=== PATIENT | male | born 1935 | race Caucasian/White ===

== ENCOUNTER 2019-06-15 12:42 | Emergency (ER) | payer MEDICARE ==
--- NOTE | 2019-06-15 13:40 | RAD ---
EXAM: CHEST 1 VIEW History: Edema COMPARISON: None available. TECHNIQUE: Single portable radiograph of the chest FINDINGS: Low lung volumes and technique accentuates heart size and pulmonary vascularity. Mild elevation of the right hemidiaphragm. Minimal bibasilar lung atelectasis. Age indeterminate right rib fractures probably old. IMPRESSION: 1. Right rib fractures, probably old. Minimal bibasilar lung atelectasis. Electronically signed by: Srinivasan Elizalde MD (06/15/2019 1:38 PM) [place] [id number]
[2019-06-15 13:43] LABS: BASO # 0.1 x10^3/uL (0.0-0.2); BASO % 1 % (0-3); EOS # 0.1 x10^3/uL (0.0-0.7); EOS % 2 % (0-3); HEMATOCRIT 43.6 % (39.0-53.0); HEMOGLOBIN 14.5 g/dL (13.0-17.5); LYMPH # 1.1 x10^3/uL (1.0-4.8); LYMPH % 17 % (24-48); MEAN CORPUSCULAR HEMOGLOBIN 29 pg (25-35); MEAN CORPUSCULAR HGB CONC 33 g/dL (31-37); MEAN CORPUSCULAR VOLUME 88 fL (79-100); MONO # 0.5 x10^3/uL (0.0-1.1); MONO % 7 % (0-9); NEUT # 4.9 x10^3uL (1.8-7.7); NEUT % 73 % (31-73); PLATELET COUNT 238 x10^3/uL (140-400); RED BLOOD COUNT 4.98 x10^6/uL (4.30-5.70); RED CELL DISTRIBUTION WIDTH 14.1 % (11.5-14.5); WHITE BLOOD COUNT 6.7 x10^3/uL (4.0-11.0)
[2019-06-15 13:51] LABS: BACTERIA,URINE 0 /HPF (0-FEW); BILIRUBIN,URINE NEG (NEG); CLARITY,URINE CLEAR; COLOR,URINE YELLOW; GLUCOSE,URINE NEG (NEG); NITRITE,URINE NEG (NEG); UROBILINOGEN,URINE 0.2 mg/dL (0.2 mg/dL)
[2019-06-15 13:52] LABS: SQUAMOUS EPITHELIAL CELL,UR OCC /LPF
[2019-06-15 14:04] LABS: ALBUMIN 3.2 g/dL (3.4-5.0); CALCIUM 8.8 mg/dL (8.5-10.1); CREATININE 1.4 mg/dL (0.7-1.3); GFR 48.3; TOTAL BILIRUBIN 0.8 mg/dL (0.2-1.0); TOTAL PROTEIN 6.3 g/dL (6.4-8.2)
--- NOTE | 2019-06-15 14:11 | PHYS DOC ---
Adult General Chief Complaint Chief Complaint: LOWER EXTREMITY SWELLING HPI HPI 84-year-old male presents with bilateral lower extremity swelling. He tells me that this is been building up for about the last 1 month. Patient has no shortness of breath, cough, chest pain, or diaphoresis. He walks one to 2 miles every day. He has been able to do this without trouble. His daughter was visiting him today noticed how swollen his legs were and she wanted to have him evaluated. Patient does not wear JORI hose. He has no history of CHF or other heart trouble. He is on a statin and pressure medicine. He denies fever or chills. Review of Systems Review of Systems Constitutional: Denies fever or chills [] Eyes: Denies change in visual acuity, redness, or eye pain [] HENT: Denies nasal congestion or sore throat [] Respiratory: Denies cough or shortness of breath [] Cardiovascular: No additional information not addressed in HPI [] GI: Denies abdominal pain, nausea, vomiting, bloody stools or diarrhea [] : Denies dysuria or hematuria [] Musculoskeletal: Lower extremity edema bilaterally[] Integument: Denies rash or skin lesions [] Neurologic: Denies headache, focal weakness or sensory changes [] Endocrine: Denies polyuria or polydipsia [] All other systems were reviewed and found to be within normal limits, except as documented in this note. Physical Exam Physical Exam Constitutional: Well developed, well nourished, no acute distress, non-toxic appearance. [] HENT: Normocephalic, atraumatic, bilateral external ears normal, oropharynx moist, no oral exudates, nose normal. [] Eyes: PERRLA, EOMI, conjunctiva normal, no discharge. [] Neck: Normal range of motion, no tenderness, supple, no stridor. [] Cardiovascular:Heart rate regular rhythm, no murmur [] Lungs & Thorax: Bilateral breath sounds clear to auscultation [] Abdomen: Bowel sounds normal, soft, no tenderness, no masses, no pulsatile masses. [] Skin: Warm, dry, no erythema, no rash. [] Back: No tenderness, no CVA tenderness. [] Extremities: No tenderness, no cyanosis, no clubbing, ROM intact, 4+ pitting edema bilaterally to the thighs. [] Neurologic: Alert and oriented X 3, normal motor function, normal sensory funct ion, no focal deficits noted. [] Psychologic: Affect normal, judgement normal, mood normal. [] Current Patient Data Lab Results Laboratory Tests Test 06/15/19 13:15 06/15/19 13:30 Urine Collection Type Void Urine Color Yellow Urine Clarity Clear Urine pH 6.0 Urine Specific [place] 1.020 Urine Protein Neg (NEG-TRACE) Urine Glucose (UA) Neg mg/dL (NEG) Urine Ketones (Stick) Neg mg/dL (NEG) Urine Blood Trace (NEG) Urine Nitrite Neg (NEG) Urine Bilirubin Neg (NEG) Urine Urobilinogen Dipstick 0.2 mg/dL (0.2 mg/dL) Urine Leukocyte Esterase Neg (NEG) Urine RBC 3-5 /HPF (0-2) Urine WBC 1-4 /HPF (0-4) Urine Squamous Epithelial Cells Occ /LPF Urine Bacteria 0 /HPF (0-FEW) Urine Mucus Slight /LPF White Blood Count 6.7 x10^3/uL (4.0-11.0) Red Blood Count 4.98 x10^6/uL (4.30-5.70) Hemoglobin 14.5 g/dL (13.0-17.5) Hematocrit 43.6 % (39.0-53.0) Mean Corpuscular Volume 88 fL (79-100) Mean Corpuscular Hemoglobin 29 pg (25-35) Mean Corpuscular Hemoglobin Concent 33 g/dL (31-37) Red Cell Distribution Width 14.1 % (11.5-14.5) Platelet Count 238 x10^3/uL (140-400) Neutrophils (%) (Auto) 73 % (31-73) Lymphocytes (%) (Auto) 17 % (24-48) L Monocytes (%) (Auto) 7 % (0-9) Eosinophils (%) (Auto) 2 % (0-3) Basophils (%) (Auto) 1 % (0-3) Neutrophils # (Auto) 4.9 x10^3uL (1.8-7.7) Lymphocytes # (Auto) 1.1 x10^3/uL (1.0-4.8) Monocytes # (Auto) 0.5 x10^3/uL (0.0-1.1) Eosinophils # (Auto) 0.1 x10^3/uL (0.0-0.7) Basophils # (Auto) 0.1 x10^3/uL (0.0-0.2) EKG EKG Sinus rhythm, prolonged UT, leftward axis, downsloping T waves in leads [address] elevations or depressions. Deep S waves in leads 2, 3, and aVF.[] Radiology/Procedures Radiology/Procedures [] Impressions: EXAM: CHEST 1 VIEW History: Edema COMPARISON: None available. TECHNIQUE: Single portable radiograph of the chest FINDINGS: Low lung volumes and technique accentuates heart size and pulmonary vascularity. Mild elevation of the right hemidiaphragm. Minimal bibasilar lung atelectasis. Age indeterminate right rib fractures probably old. IMPRESSION: 1. Right rib fractures, probably old. Minimal bibasilar lung atelectasis. Electronically signed by: Srinivasan Elizalde MD (06/15/2019 1:38 PM) [place] [id number] DICTATED AND SIGNED BY: SRINIVASAN ELIZALDE MD DATE: 06/15/19 0002 CC: BASHIR HAYES DO; THERON HAGEN MD ~ Course & Med Decision Making Course & Med Decision Making Pertinent Labs and Imaging studies reviewed. (See chart for details) Patient's x-ray does show some atelectasis. His labs are unremarkable. His proBNP is negative. I will place the patient on 20 mg of Lasix daily and advised that he follow-up with his primary care physician. He will also be advised to take a potassium supplement. He is stable for discharge at this time. [] Dragon Disclaimer Dragon Disclaimer This electronic medical record was generated, in whole or in part, using a voice recognition dictation system. Departure Departure: Impression: Primary Impression: Bilateral lower extremity edema Disposition: 01 HOME, SELF-CARE Condition: STABLE Referrals: THERON HAGEN MD (PCP) Patient Instructions: Peripheral Edema Additional Instructions: Please take a potassium supplement as long as you're on Lasix. Follow-up with your primary care physician as soon as possible to see if they want to continue this medicine. Scripts Furosemide (LASIX) 20 Mg Tablet 1 TAB PO DAILY for lower extremity edema for 10 Days, #10 TAB Prov: BASHIR HAYES DO 06/15/19 BASHIR HAYES DO Jun 15, 2019 14:11
[2019-06-15] MEDS ORDERED: FURO-69 PO (14:40)
--- NOTE | 2019-06-15 14:47 | EKG ---
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
== END 2019-06-15 14:50 | disposition home or self-care (01) ==
LOC: ER 12:42
DX: R60.0 Localized edema (principal)
CPT/HCPCS: 36415; 71045; 80053; 81001; 83880; 84484; 85025; 93005; 99285

== ENCOUNTER 2021-10-07 10:13 | Emergency (ER) | payer MEDICARE ==
[~2021-10-07] VITALS: Ht 180.3 cm; Wt 121.0 kg
[~2021-10-07 10:13] MED LIST: FURO-69 PO
[2021-10-07 10:15] VITALS: BP 120/55
--- NOTE | 2021-10-07 10:43 | PHYS DOC ---
General Adult HPI: HPI: Patient is an 86-year-old male who presents to the emergency department for left foot swelling that started yesterday. Patient denies any pain, injury, wounds, fevers, shortness of breath, chest pain. 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 He reports that his Coumadin was recently adjusted. Patient denies any recent surgeries or immobilization. (FRANSISCA LEON APRN) Review of Systems: Review of Systems: 14 body systems of the review of systems have been reviewed. See HPI for pertinent positive and negative responses, otherwise all other systems are negative, nonpertinent or noncontributory (FRANSISCA LEON APRN) Physical Exam: PE: Constitutional: Well developed, well nourished, no acute distress, non-toxic appearance. [] HENT: Normocephalic, atraumatic, bilateral external ears normal, oropharynx moist, no oral exudates, nose normal. [] Eyes: PERRL, EOMI, conjunctiva normal, no discharge. [] Neck: Normal range of motion, no stridor Cardiovascular:Heart rate regular rhythm, no murmur [] Lungs & Thorax: Bilateral breath sounds clear to auscultation [] Abdomen: Bowel sounds normal, soft, no tenderness, obese, no masses, no pulsatile masses. [] Skin: Warm, dry, no erythema, no rash. [] Back: Motion Extremities: No tenderness, no cyanosis, no clubbing, ROM intact, trace edema noted to right foot. Left foot: 1+ pitting edema noted to left foot, no erythema, no warmth noted, no wounds, range of motion intact, neuro intact. No calf or leg swelling noted. Neurologic: Alert and oriented X 3, normal motor function, normal sensory function, no focal deficits noted. [] Psychologic: Affect normal, judgement normal, mood normal. [] (FRANSISCA LEON RES HABILITATION ASSISTANT) Current Patient Data: Labs: Laboratory Tests Test 10/07/21 10:45 White Blood Count 10.0 x10^3/uL Red Blood Count 4.36 x10^6/uL Hemoglobin 12.5 g/dL Hematocrit 37.3 % Mean Corpuscular Volume 86 fL Mean Corpuscular Hemoglobin 29 pg Mean Corpuscular Hemoglobin Concent 33 g/dL Red Cell Distribution Width 14.6 % Platelet Count 254 x10^3/uL Neutrophils (%) (Auto) 78 % Lymphocytes (%) (Auto) 9 % Monocytes (%) (Auto) 12 % Eosinophils (%) (Auto) 1 % Basophils (%) (Auto) 1 % Neutrophils # (Auto) 7.8 x10^3uL Lymphocytes # (Auto) 0.9 x10^3/uL Monocytes # (Auto) 1.2 x10^3/uL Eosinophils # (Auto) 0.1 x10^3/uL Basophils # (Auto) 0.1 x10^3/uL Sodium Level 142 mmol/L Potassium Level 4.5 mmol/L Chloride Level 105 mmol/L Carbon Dioxide Level 30 mmol/L Anion Gap 7 Blood Urea Nitrogen 29 mg/dL Creatinine 1.8 mg/dL Estimated GFR (Cockcroft-Gault) 36.0 BUN/Creatinine Ratio 16 Glucose Level 107 mg/dL Calcium Level 8.2 mg/dL Total Bilirubin 0.5 mg/dL Aspartate Amino Transf (AST/SGOT) 21 U/L Alanine Aminotransferase (ALT/SGPT) 16 U/L Alkaline Phosphatase 83 U/L Troponin I High Sensitivity 10 ng/L BE-Dai-E-Type Natriuretic Peptide 322 pg/mL Total Protein 6.1 g/dL Albumin 3.0 g/dL Albumin/Globulin Ratio 1.0 (FRANSISCA LEON APRN) EKG: EKG: [] (FRANSISCA LEON APRN) Radiology/Procedures: Radiology/Procedures: []PROCEDURE: FOOT LEFT 3V EXAM: Left foot, 3 views. HISTORY: Swelling. COMPARISON: None. FINDINGS: 3 views of the left foot are obtained. There is no acute fracture, dislocation or subluxation. There is no convincing osseous erosion or lytic or sclerotic osseous lesion. There is dorsal forefoot soft tissue edema. There is a benign osseous excrescence along the anterior talus. There is a tiny plantar spur. There are vascular calcifications. IMPRESSION: 1. Dorsal forefoot soft tissue swelling. 2. No acute osseous finding. Electronically signed by: Maggie Barros MD (10/07/2021 11:15 AM) [id number] DICTATED AND SIGNED BY: MAGGIE BARROS MD DATE: 10/07/21 1114 CC: FRANSISCA LEON APRN; THERON HAGEN MD ~MTH0 0 PROCEDURE: VENOUS LOWER EXTREMITY LEFT Exam Date: 10/07/2021 10:44 AM US DPLX VENOUS EXTREMITY LOWER LT Indication: Reason: lle swelling / Spl. Instructions: / History: . INDICATION: Lower extremity pain/swelling TECHNIQUE: Grayscale sonogram, color Doppler, and spectral Doppler waveform analysis of the lower extremity venous system was performed on the left. FINDINGS: The left common femoral, superficial femoral, central greater saphenous, popliteal, posterior tibial and peroneal veins are compressible and demonstrate normal color Doppler flow and normal spontaneous phasic waveforms or normal response to augmentation. Left lower extremity subcutaneous edema is noted. IMPRESSION: No evidence of deep venous thrombosis in the left lower extremity. Left lower extremity subcutaneous edema is noted. Electronically signed by: Amy De La Torre MD (10/07/2021 11:07 AM) [id number] DICTATED AND SIGNED BY: AMY DE LA TORRE MD DATE: 10/07/21 1106 CC: FRANSISCA LEON APRN; THERON HAGEN MD ~MTH0 0 (FRANSISCA LEON APRN) Heart Score: C/O Chest Pain: No Risk Factors: Risk Factors: DM, Current or recent (<one month) smoker, HTN, HLP, family history of CAD, obesity. Risk Scores: Score 0 - 3: 2.5% MACE over next 6 weeks - Discharge Home Score 4 - 6: 20.3% MACE over next 6 weeks - Admit for Clinical Observation Score 7 - 10: 72.7% MACE over next 6 weeks - Early Invasive Strategies (FRANSISCA LEON APRN) Course & Med Decision Making: Course & Med Decision Making Pertinent Labs and Imaging studies reviewed. (See chart for details) [] Patient presents emergency department today for swelling in his left foot that started yesterday. Patient denies any pain, shortness of breath, chest p ain, injury, fevers or wounds. Patient has a history of a DVT in 2003 and is on Coumadin and recently had those dosages changed. Patient's well score is 2 points giving him moderate risk for DVT. Work-up in the ER consisted of blood work and ultrasound of left lower extremity. CBC was unremarkable. Patient had elevated BUN and creatinine which is consistent with his previous lab findings. Remainder of patient's labs was unremarkable. The x-ray did not show any acute findings. Ultrasound did not show any DVT, subcutaneous edema was noted. Patient will be treated for cellulitis with an antibiotic. Patient advised to elevate his extremity to help with his edema. Patient's vital signs are stable he is in no acute distress. Discussed case with supervising physician. I discussed with patient all findings and diagnostic testing as well as the need to follow-up with PCP for further evaluation and treatment or return to the ER if any new or worsening symptoms. Strict return precautions were also discussed at length. Patient voiced understanding and agreement with the plan. Patient is hemodynamically stable at the time of disposition. (FRANSISCA LEON APRN) Dragon Disclaimer: Dragon Disclaimer: This electronic medical record was generated, in whole or in part, using a voice recognition dictation system. (FRANSISCA LEON APRN) Attending Co-Sign The patient was seen and interviewed as well as examined at the bedside. The chart was reviewed. The case was discussed. Agree with the plan of care. (BASHIR HAYES DO) Departure Departure: Impression: Primary Impression: Cellulitis Qualified Codes: L03.116 - Cellulitis of left lower limb Additional Impression: Lower extremity edema Disposition: HOME / SELF CARE / HOMELESS Condition: GOOD Referrals: THERON HAGEN MD (PCP) Patient Instructions: Cellulitis, [id number], Edema Additional Instructions: You were seen in the emergency department today for swelling to your left foot. Your blood work was mostly unremarkable, you had an elevated kidney level which is consistent with your previous lab findings. Your x-ray did not show any acute findings and your ultrasound did not show any blood clots in your leg. We are treating you for cellulitis which is a skin infection and can cause skin swelling, please start and finish the antibiotic completely. Please use elevation to help with your lower extremity edema. Please make sure that you are taking all of your medications as prescribed. I would advise you to follow- up with your primary care provider tomorrow regarding your ER visit. Please return to the emergency department if you develop worsening of your swelling, pain, shortness of breath, chest pain, coughing up blood, high fevers refractory to treatment, inability to bear weight or ambulate or any new or worsening concerns. Scripts Cephalexin (KEFLEX) 500 Mg Capsule 1 CAP PO QID for infection for 7 Days, #28 CAP 0 Refills Prov: FRANSISCA LEON APRN 10/07/21 FRANSISCA LEON APRN Oct 07, 2021 10:43 BASHIR HAYES DO Oct 08, 2021 11:24
[2021-10-07 11:09] LABS: BASO # 0.1 x10^3/uL (0.0-0.2); BASO % 1 % (0-3); EOS # 0.1 x10^3/uL (0.0-0.7); EOS % 1 % (0-3); HEMATOCRIT 37.3 % (39.0-53.0); HEMOGLOBIN 12.5 g/dL (13.0-17.5); LYMPH # 0.9 x10^3/uL (1.0-4.8); LYMPH % 9 % (24-48); MEAN CORPUSCULAR HEMOGLOBIN 29 pg (25-35); MEAN CORPUSCULAR HGB CONC 33 g/dL (31-37); MEAN CORPUSCULAR VOLUME 86 fL (79-100); MONO # 1.2 x10^3/uL (0.0-1.1); MONO % 12 % (0-9); NEUT # 7.8 x10^3uL (1.8-7.7); NEUT % 78 % (31-73); PLATELET COUNT 254 x10^3/uL (140-400); RED BLOOD COUNT 4.36 x10^6/uL (4.30-5.70); RED CELL DISTRIBUTION WIDTH 14.6 % (11.5-14.5)
--- NOTE | 2021-10-07 11:09 | RAD ---
Exam Date: 10/07/2021 10:44 AM US DPLX VENOUS EXTREMITY LOWER LT Indication: Reason: lle swelling / Spl. Instructions: / History: . INDICATION: Lower extremity pain/swelling TECHNIQUE: Grayscale sonogram, color Doppler, and spectral Doppler waveform analysis of the lower ex tremity venous system was performed on the left. FINDINGS: The left common femoral, superficial femoral, central greater saphenous, popliteal, posterior tibial and peroneal veins are compressible and demonstrate normal color Doppler flow and normal spontaneous phasic waveforms or normal response to augmentation. Left lower extremity subcutaneous edema is noted. IMPRESSION: No evidence of deep venous thrombosis in the left lower extremity. Left lower extremity subcutaneous edema is noted. Electronically signed by: Shar De La Torre MD (10/07/2021 11:07 AM) [id number]
--- NOTE | 2021-10-07 11:18 | RAD ---
EXAM: Left foot, 3 views. HISTORY: Swelling. COMPARISON: None. FINDINGS: 3 views of the left foot are obtained. There is no acute fracture, dislocation or subluxati on. There is no convincing osseous erosion or lytic or sclerotic osseous lesion. There is dorsal fore foot soft tissue edema. There is a benign osseous excrescence along the anterior talus. There is a ti ny plantar spur. There are vascular calcifications. IMPRESSION: 1. Dorsal forefoot soft tissue swelling. 2. No acute osseous finding. Electronically signed by: Maggie Toscano MD (10/07/2021 11:15 AM) [id number]
[2021-10-07 11:21] LABS: CALCIUM 8.2 mg/dL (8.5-10.1); CREATININE 1.8 mg/dL (0.7-1.3); POTASSIUM 4.5 mmol/L (3.5-5.1)
[2021-10-07 11:34] LABS: TOTAL BILIRUBIN 0.5 mg/dL (0.2-1.0); TOTAL PROTEIN 6.1 g/dL (6.4-8.2)
[2021-10-07] MEDS ORDERED: CEPH500C PO (11:58)
== END 2021-10-07 12:20 | disposition home or self-care (01) ==
LOC: ER 10:13
DX: L03.116 Cellulitis of left lower limb (principal); R60.0 Localized edema
CPT/HCPCS: 36415; 73630; 80053; 83880; 84484; 85025; 93971; 99285-25

== ENCOUNTER 2021-12-13 10:31 | Emergency (ER) | payer MEDICARE ==
[~2021-12-13] VITALS: Ht 180.3 cm; Wt 121.0 kg
[~2021-12-13 10:31] MED LIST changes: +CEPH500C PO
--- NOTE | 2021-12-13 11:23 | PHYS DOC ---
Past History Additional Past Medical Histor: Chronic anticoagulant Past Surgical History: Other Additional Past Surgical Histo: IVC filter Alcohol Use: None General Adult EDM: Chief Complaint: GENERALIZED BODY ACHES HPI: HPI: Patient is a 86-year-old male who presents with body aches. Patient states for the last 3 days when he wakes up in the morning he has body aches until about 11 AM. Denies pain. No fevers. No recent illness. No dizziness, chest pain, shortness of breath. Patient states "I just feel achy, and then it goes away in a couple hours". Denies taking anything for discomfort. Patient has been fully vaccinated for COVID-19. Patient has history of hypertension, hyperlipidemia. Review of Systems: Review of Systems: ROS At least 10 ROS systems have been reviewed and are negative except as documented in the HPI. General: Negative except as outlined in HPI above. Skin: Negative except as outlined in HPI above. HEENT: Negative except as outlined in HPI above. Neck: Negative except as outlined in HPI above. Respiratory: Negative except as outlined in HPI above.. Cardiovascular: Negative except as outlined in HPI above. Abdomen: Negative except as outlined in HPI above. : Negative except as outlined in HPI above. Back/MSK: Negative except as outlined in HPI above. Neuro: Negative except as outlined in HPI above. Psych: Negative except as outlined in HPI above. Allergies: Allergies: Allergies Coded Allergies Type Severity Reaction Last Updated Verified No Known Drug Allergies 10/07/21 No Physical Exam: PE: Constitutional: Well developed, well nourished, no acute distress, non-toxic appearance. [] HENT: Normocephalic, atraumatic, bilateral external ears normal, oropharynx moist, no oral exudates, nose normal. [] Eyes: PERRLA, EOMI, conjunctiva normal, no discharge. [] Neck: Normal range of motion, no tenderness, supple, no stridor. [] Cardiovascular:Heart rate regular rhythm, no murmur [] Lungs & Thorax: Bilateral breath sounds clear to auscultation [] Abdomen: Bowel sounds normal, soft, no tenderness, no masses, no pulsatile masses. [] Skin: Warm, dry, no erythema, no rash. [] Back: No tenderness, no CVA tenderness. [] Extremities: No tenderness, no cyanosis, no clubbing, ROM intact, no edema. [] Neurologic: Alert and oriented X 3, normal motor function, normal sensory function, no focal deficits noted. [] Psychologic: Affect normal, judgement normal, mood normal. [] Current Patient Data: Vital Signs: Vital Signs Date Time Temp Pulse Resp B/P (MAP) Pulse Ox O2 Delivery O2 Flow Rate FiO2 12/13/21 10:53 98.2 88 18 125/65 (85) 99 Room Air EKG: EKG: HR 67BPM[] Radiology/Procedures: Radiology/Procedures: []AP chest. HISTORY: Body aches AP view was taken of the chest. There are old right rib fractures. There is no pneumothorax or pleural effusion. Heart is normal in size. The aorta is tortuous. There is thoracolumbar scoliosis. Patient's not taken a deep inspiration. No acute infiltrates are noted. IMPRESSION: 1. No acute infiltrates. Electronically signed by: Kayden Dietrich MD (12/13/2021 11:51 AM) [id number] Heart Score: C/O Chest Pain: No Risk Factors: Risk Factors: DM, Current or recent (<one month) smoker, HTN, HLP, family history of CAD, obesity. Risk Scores: Score 0 - 3: 2.5% MACE over next 6 weeks - Discharge Home Score 4 - 6: 20.3% MACE over next 6 weeks - Admit for Clinical Observation Score 7 - 10: 72.7% MACE over next 6 weeks - Early Invasive Strategies Course & Med Decision Making: Course & Med Decision Making Pertinent Labs and Imaging studies reviewed. (See chart for details) [] 86-year-old male presents with body aches for the last 3 days. Patient states that they only lasted for a couple of hours and then go away. Work-up in ER consisted of EKG, labs, UA, chest x-ray. Dragon Disclaimer: Dragon Disclaimer: This electronic medical record was generated, in whole or in part, using a voice recognition dictation system. Departure Departure: Impression: Primary Impression: Body aches Disposition: HOME / SELF CARE / HOMELESS Condition: STABLE Referrals: THERON HAGEN MD (PCP) Additional Instructions: You were seen in the emergency room for body aches. We did basic labs, EKG, chest x-ray, and obtain urine. All of your labs were unremarkable. Chest x-ray was unremarkable as well. Please follow-up with your PCP for further management. I will call him on Wednesday and make an appointment. Return to the emergency room if you have worsening symptoms or concerns such as fever, uncontrolled vomiting, chest pain, shortness of breath. EMERGENCY DEPARTMENT GENERAL DISCHARGE INSTRUCTIONS Thank you for coming to [facility] (ED) today and trusting us with you care. We trust that you had a positivie experience in our Emergency Department. If you wish to speak to the department management, you may call the director at [phone]. YOUR FOLLOW UP INSTRUCTIONS ARE FOLLOWS: 1. Do you have a private Doctor? If you do not have a private doctor, please ask for a resource list of physicians or clinics that may be able to assist you with follow up care. 2. The Emergency Physician has interpreted your x-rays. The X-Ray specialist will also review them. If there is a change in the findings, you will be notified in 48 hours when at all possible. 3. A lab test or culture has been done, your results will be reviewed and you will be notified if you need a change in treatment. ADDITIONAL INSTRUCTIONS AND INFORMATION: 1. Your care today has been supervised by a physician who is specially trained in emergency care. Many problems require more than one evaluation for a complete diagnosis and treatment. We recommend that you schedule your follow up appointment as recommended to ensure complete treatment of you illness or injury. If you are unable to obtain follow up care and continue to have a problem, or if your condition worsens, we recommend that you return to the ED. 2. We are not able to safely determine your condition over the phone nor are we able to give sound medical advice over the phone. For these safety reasons, if you call for medical advice we will ask you to come to the ED for further evaluation. 3. If you have any questions regarding these discharge instructions please call the ED at [phone]. SAFETY INFORMATION: In the interest of safety, wellness, and injury prevention; we encourage you to wear your sealbelt, if you smoke; quite smoking, and we encourage family to use a protective helmet for bicycling and other sporting events that present an increased risk for head injury. IF YOUR SYMPTOMS WORSEN OR NEW SYMPTOMS DEVELOP, OR YOU HAVE CONCERNS ABOUT YOUR CONDITION; OR IF YOUR CONDITION WORSENS WHILE YOU ARE WAITING FOR YOUR FOLLOW UP APPOINTMENT; EITHER CONTACT YOUR PRIMARY CARE DOCTOR, THE PHYSICIAN WHOSE NAME AND NUMBER YOU WERE GIVEN, OR RETURN TO THE ED IMMEDIATELY. MIKHAIL ROSENBERG APRN Dec 13, 2021 11:23
[2021-12-13 11:46] LABS: BASO % 1 % (0-3); EOS # 0.1 x10^3/uL (0.0-0.7); EOS % 1 % (0-3); HEMATOCRIT 40.8 % (39.0-53.0); HEMOGLOBIN 13.6 g/dL (13.0-17.5); LYMPH # 0.9 x10^3/uL (1.0-4.8); LYMPH % 12 % (24-48); MEAN CORPUSCULAR HEMOGLOBIN 29 pg (25-35); MEAN CORPUSCULAR HGB CONC 33 g/dL (31-37); MEAN CORPUSCULAR VOLUME 85 fL (79-100); MONO # 0.8 x10^3/uL (0.0-1.1); MONO % 10 % (0-9); NEUT # 5.9 x10^3uL (1.8-7.7); NEUT % 76 % (31-73); PLATELET COUNT 236 x10^3/uL (140-400); RED BLOOD COUNT 4.79 x10^6/uL (4.30-5.70); RED CELL DISTRIBUTION WIDTH 16.1 % (11.5-14.5); WHITE BLOOD COUNT 7.8 x10^3/uL (4.0-11.0)
--- NOTE | 2021-12-13 11:53 | RAD ---
AP chest. HISTORY: Body aches AP view was taken of the chest. There are old right rib fractures. There is no pneumothorax or pleura l effusion. Heart is normal in size. The aorta is tortuous. There is thoracolumbar scoliosis. Patient 's not taken a deep inspiration. No acute infiltrates are noted. IMPRESSION: 1. No acute infiltrates. Electronically signed by: Kayden Dietrich MD (12/13/2021 11:51 AM) [id number]
[2021-12-13 11:54] LABS: CALCIUM 8.5 mg/dL (8.5-10.1); CREATININE 1.9 mg/dL (0.7-1.3); GFR 33.8; POTASSIUM 4.3 mmol/L (3.5-5.1)
[2021-12-13 12:20] LABS: BACTERIA,URINE 0 /HPF (0-FEW); CLARITY,URINE CLEAR; COLOR,URINE YELLOW; GLUCOSE,URINE NEG (NEG); NITRITE,URINE NEG (NEG); RBC,URINE RARE /HPF (0-2); SQUAMOUS EPITHELIAL CELL,UR OCC /LPF; UROBILINOGEN,URINE 0.2 mg/dL (0.2 mg/dL); WBC,URINE 0 /HPF (0-4)
[2021-12-13] MEDS ORDERED: IV NORMAL SALINE 500ML 500 ML IV ONE (12:45)
[2021-12-13] MEDS ORDERED: LIDO:MAALOX 1:1 20 ML SINGLE DOSE. PO ONE (12:45)
[2021-12-13 13:26] VITALS: BP 116/59
--- NOTE | 2021-12-13 14:48 | EKG ---
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
== END 2021-12-13 13:31 | disposition home or self-care (01) ==
LOC: ER 10:31
DX: M79.10 Myalgia, unspecified site (principal); I10 Essential (primary) hypertension; E78.5 Hyperlipidemia, unspecified
CPT/HCPCS: 36415; 71045; 80048; 81001; 85025; 93005; 99285